=== PATIENT | male | born 1940 | race Caucasian/White ===

== ENCOUNTER 2021-06-10 21:15 | Inpatient (IN) | payer MEDICARE ==
[~2021-06-10] VITALS: Ht 188 cm; Wt 105.7 kg
--- NOTE | 2021-06-10 21:43 | PHYS DOC ---
General Adult HPI: HPI: 81 yo M PMH HTN, HLD, gout, former diabetes and tobacco use, presents to the ED with his son, (patient consents to his/her/their knowledge and involvement in pts' medical care), with complaints of "I have really bad acid reflux," and shortness of breath when lying flat. Reports his PCP Dr. Quevedo' nurse evaluated him today and his oxygen was never above 93%. Received the Pfizer vaccine. Reports shortness of breath started today. Describes as acid reflux as epigastric, constant, nonradiating burning pain that has been present for the past week. Denies any associated scapular pain, jaw pain, diaphoresis, nausea, vomiting, chest pressure/tightness/heaviness or back pain. No history of COVID- 19 infection. Reports no associated leg swelling but does feel as if his abdomen is increased in size. Review of Systems: Review of Systems: Constitutional: Denies fever or chills. [] Eyes: Denies change in visual acuity. [] HENT: Denies nasal congestion or sore throat. [] Respiratory: Denies cough or hemoptysis Cardiovascular: Denies chest pain or edema. [] GI: Denies abdominal pain, nausea, vomiting, bloody stools or diarrhea. [] : Denies dysuria or hematuria Musculoskeletal: Denies back pain or joint pain. [] Integument: Denies rash or diaphoresis Neurologic: Denies headache, focal weakness or sensory changes. [] Endocrine: Denies polyuria or polydipsia. [] Lymphatic: Denies swollen glands. [] Psychiatric: Denies depression or anxiety. [] Heart Score: C/O Chest Pain: No Risk Factors: Risk Factors: DM, Current or recent (<one month) smoker, HTN, HLP, family history of CAD, obesity. Risk Scores: Score 0 - 3: 2.5% MACE over next 6 weeks - Discharge Home Score 4 - 6: 20.3% MACE over next 6 weeks - Admit for Clinical Observation Score 7 - 10: 72.7% MACE over next 6 weeks - Early Invasive Strategies Physical Exam: PE: Constitutional: well nourished, sitting upright/pillow behind back HENT: Normocephalic, atraumatic, Eyes: EOMI, conjunctiva normal, no discharge. Neck: Normal range of motion, supple, Cardiovascular: S1/2 present, no murmurs Lungs & Thorax: Speaking in full sentences-becomes tachypneic/labored with speech, bilateral equal chest rise, no wheezing/rales/crackles Abdomen: soft, obese and slightly distended Skin: Warm, dry, no erythema, no rash. [] Back: No tenderness, no CVA tenderness. [] Extremities: No tenderness, no cyanosis, no lower extremity edema Neurologic: Alert and oriented X 3, normal motor function, normal sensory function, no focal deficits noted. [] Psychologic: Affect normal, judgement normal, mood normal. [] EKG: EK irregular rhythm/afib 83 bpm, no axis deviation, ST elevation III and questionable ST elevation in aVF, no ST depressions, no T wave inversion, no active chest pain, q wave III, no reciprocal changes, no prior EKG for comparison 223 irregular rhythm/afib at 87 bpm, no axis deviation, QRS 122, QTc 470, ST segment elevations III, patient with no active chest pain, no reciprocal changes, no prior EKG for comparison Radiology/Procedures: Radiology/Procedures: IMAGING REPORT Signed PATIENT: CHRISSIE PAREDES ACCOUNT: [id number] : 1940 LOCATION: ER AGE: 81 SEX: M EXAM STATUS: REG ER ORD. PHYSICIAN: KEY YOUNG DO REASON: soa PROCEDURE: PORTABLE CHEST 1V Exam: Chest one view INDICATION: Short of air TECHNIQUE: Frontal view of the chest Comparisons: None FINDINGS: The cardiomediastinal silhouette and pulmonary vessels are within normal limits. Patchy bibasilar airspace disease. No pleural effusion. IMPRESSION: Patchy bilateral airspace disease. Electronically signed by: aJm Reeder MD (06/10/2021 10:37 PM) [facility] DICTATED and SIGNED BY: JAM REEDER MD DATE: 06/10/210934QSI4 0 Course & Med Decision Making: Course & Med Decision Making Pertinent Labs and Imaging studies reviewed. (See chart for details) Pt continued to report shortness of breath and denies any chest pain/pressure/tightness, etc. Some improvement in dyspnea after nitro, lasix and bipap. I d/w Dr. Davis who reviewed pts' ekgs- concerned for a bundle and only 1 ST elevation with no reciprocal changes. Recommended heparin bolus/drip, to make pt npo after midnight, likely cath in am. Pt requests oxygen despite no hypoxia or tachycardia but does have some increased work of breathing, PE is on the differential. I d/w radiology Dr. Lala who recommended against a CTA chest due to pts' renal function and hospital policy, but rather to do a perfusion study. Concerned for nstemi in setting of renal insufficiency and dyspnea. Will admit to the ICU for further medical management. Patient stable time of admission and agrees with this plan. I have spoken with the patient and/or caregivers. I have explained the patient's condition, diagnosis and treatment plan based on the information available to me at this time. I have answered the patient's and/or caregivers questions and answered any concerns. The patient and/or caregivers have as good an understanding of the patient's diagnosis, condition and treatment plan as can be expected at this point. The patient has been stabilized within the capability of the emergency department. The patient will be transported for further care and management or will be moved to an observation or inpatient service. I have communicated with the staff or medical practitioner taking over this patient's care. Critical Care: Authorized and Performed by: Key Young DO Total critical care time: approximately 60 minutes Due to a high probability of clinically significant, life threatening deterior ation, the patient required my highest level of preparedness to intervene emergently and I personally spent this critical care time directly and personally managing the patient. This critical care time included obtaining a history; examining the patient; pulse oximetry; ventilator management if necessary; ordering and review of studies; arranging urgent treatment with development of a management plan; evaluation of patient's response to treatment; frequent reassessment; discussion with patient/family; and, discussions with other providers. This critical care time was performed to assess and manage the high probability of imminent, life-threatening deterioration that could result in multi-organ failure. It was exclusive of separately billable procedures and t reating other patients and teaching time. Please see MDM section and the rest of the note for further information on patient assessment and treatment. Dragon Disclaimer: Dragon Disclaimer: This electronic medical record was generated, in whole or in part, using a voice recognition dictation system. Departure Departure Impression: Primary Impression: NSTEMI (non-ST elevated myocardial infarction) Additional Impressions: Renal insufficiency Dyspnea Disposition: ADMITTED INPATIENT Admitting Physician: Panfilo Jeffrey Condition: CRITICAL Referrals: PANFILO JEFFREY MD (PCP) KEY YOUNG DO Jun 10, 2021 21:43
[2021-06-10 22:04] LABS: BASO # 0.1 x10^3/uL (0.0-0.2); BASO % 1 % (0-3); EOS % 0 % (0-3); HEMATOCRIT 39.7 % (39.0-53.0); HEMOGLOBIN 13.5 g/dL (13.0-17.5); LYMPH # 0.9 x10^3/uL (1.0-4.8); LYMPH % 7 % (24-48); MEAN CORPUSCULAR HEMOGLOBIN 31 pg (25-35); MEAN CORPUSCULAR HGB CONC 34 g/dL (31-37); MEAN CORPUSCULAR VOLUME 90 fL (79-100); MONO # 0.3 x10^3/uL (0.0-1.1); MONO % 3 % (0-9); NEUT % 89 % (31-73); PLATELET COUNT 257 x10^3/uL (140-400); RED CELL DISTRIBUTION WIDTH 15.6 % (11.5-14.5); WHITE BLOOD COUNT 12.3 x10^3/uL (4.0-11.0)
[2021-06-10 22:17] LABS: CALCIUM 8.9 mg/dL (8.5-10.1); CREATININE 1.8 mg/dL (0.7-1.3); GFR 36.3; POTASSIUM 4.6 mmol/L (3.5-5.1)
[2021-06-10 22:23] LABS: ALBUMIN 3.4 g/dL (3.4-5.0); DIRECT BILIRUBIN 0.2 mg/dL (0.0-0.2); TOTAL BILIRUBIN 0.8 mg/dL (0.2-1.0); TOTAL PROTEIN 7.6 g/dL (6.4-8.2)
[2021-06-10] MEDS ORDERED: LIDO:MAALOX 1:1 20 ML SINGLE DOSE. SWSW ONE (22:30)
[2021-06-10] MEDS ORDERED: FAMOTIDINE 20 MG/2 ML VIAL IVP ONE (22:30)
--- NOTE | 2021-06-10 22:39 | RAD ---
Exam: Chest one view INDICATION: Short of air TECHNIQUE: Frontal view of the chest Comparisons: None FINDINGS: The cardiomediastinal silhouette and pulmonary vessels are within normal limits. Patchy bibasilar airspace disease. No pleural effusion. IMPRESSION: Patchy bilateral airspace disease. Electronically signed by: Jam Benson MD (06/10/2021 10:37 PM) [facility]
[2021-06-10] MEDS ORDERED: HEPARIN for IV BOLUS 10,000 UNIT/10 ML VIAL. IV PRN (23:15)
[2021-06-10] MEDS ORDERED: ANTI-COAG MONITOR BY PHARMACY. MC PRN (23:15)
--- NOTE | 2021-06-10 23:26 | EKG ---
[facility] [address] [place] [address] Test Date: 2021-06-10 Test Time: 22:25:15 Pat Name: CHRISSIE PAREDES Department: Room: Gender: M [employer]: : 1940 Requested By: CESAR YOUNG Order Number: [id number] Reading MD: Wayne Carrion MD Measurements Intervals [place] Rate: 83 P: GA: QRS: 66 QRSD: 120 T: -2 QT: 340 QTc: 405 Interpretive Statements PROBABLE HIGH GRADE AV BLOCK INFERIOR INJURY/ISCHEMIA Electronically Signed On 06-15-2021 14:08:53 PANELBEATER by Wayne Carrion MD
[2021-06-10] MEDS ORDERED: FUROSEMIDE 40 MG/4 ML VIAL. IVP ONE (23:30)
[2021-06-10] MEDS ORDERED: NITROGLYCERIN OINT 1 GM PACKET. TP ONE (23:30)
[2021-06-10] MEDS ORDERED: HEPARIN for IV BOLUS 10,000 UNIT/10 ML VIAL. IV ONE (23:30)
[2021-06-10 23:45] LABS: PROTHROMBIN TIME PATIENT 13.8 SEC (11.7-14.0)
[2021-06-10] MEDS: HEPARIN 25,000UTS/250ML PREMIX 250 ML IV PRN (23:46)
[2021-06-11] VITALS (33 sets, daily range): BP systolic 0–146; BP diastolic 0–81
[2021-06-11 04:07] LABS: BASE EXCESS ABG -9 mmol/L (-3-3); HCO3 ABG 18 mmol/L (21-28); PCO2 ABG 42 mmHg (35-46); PO2 ABG 360 mmHg (65-108); SAT O2 ABG 100 % (92-99)
[2021-06-11 04:29] LABS: FIO2 ABG 100
[2021-06-11] MEDS ORDERED: LORazepam 0.5 MG TABLET PO PRN (04:30)
[2021-06-11 05:58] LABS: HEMATOCRIT 44.8 % (39.0-53.0); HEMOGLOBIN 14.6 g/dL (13.0-17.5); RED BLOOD COUNT 4.84 x10^6/uL (4.30-5.70); RED CELL DISTRIBUTION WIDTH 15.7 % (11.5-14.5); WHITE BLOOD COUNT 15.8 x10^3/uL (4.0-11.0)
[2021-06-11] MEDS ORDERED: SODIUM BICARB ADULT 8.4% 50 MEQ/50 ML DISP.SYRIN. IV ONE ×3 (07:15→14:45)
--- NOTE | 2021-06-11 07:15 | NUR ---
Called Dr Jeffrey updated on patient's condition, notified minimal urine output and bladder scan initially 120CC rechecked at 0600 and 6CC found and discussed consulting pulmonology. Orders received to consult Dr Diamond. Dr Diamond on unit, notified fo consult, reason for admission, and CTA not done. Dr Diamond will see patient.
[2021-06-11] MEDS ORDERED: NOREPINEPHRINE VIAL 8 MG in IV DEXTROSE 5% 250 ML IV PRN (07:45)
--- NOTE | 2021-06-11 07:45 | NUR ---
Patient's son here, notified of non visitation on Covid patient's, updated on patient's condition, consults to pulmonology and cardiology, and discussed patient's request for DNR status. Son states patient is a DNR and has a living will which he (son) will bring in when patient is able to have visits. All questions answered. Dr Diamond here to see patient and discussed POC with son; verbal orders received for DNR status, STAT Echo, dc VQ scan and CTA of chest. Dr Jeffrey also here to see patient and spoke to son--no new orders from Dr Jeffrye.
[2021-06-11 08:00] LABS: BASE EXCESS ABG -10 mmol/L (-3-3); HCO3 ABG 17 mmol/L (21-28); PCO2 ABG 40 mmHg (35-46); PO2 ABG 211 mmHg (65-108); SAT O2 ABG 99 % (92-99)
[2021-06-11 08:06] LABS: FIO2 ABG 100% BIPAP 14/6 R=16
--- NOTE | 2021-06-11 08:10 | CONS ---
DATE OF CONSULTATION: 06/11/2021 PULMONARY CONSULTATION ATTENDING PHYSICIAN: Aniket Jeffrey MD. REASON FOR CONSULTATION: Respiratory failure, CHF. HISTORY OF PRESENT ILLNESS: The patient is an 81-year-old obese male with a BMI of 29.9. The patient has history of tobacco use. History of diabetes. He was brought into the hospital with complaint of shortness of breath. The patient was having some nonspecific chest pain and he thought it was acid reflux, for which he was taking antireflux treatment. The patient was having orthopnea as well. He denies any cough. Denies any fever or chills. The patient is vaccinated with COVID. His rapid COVID test was negative as well. His chest x-ray was reviewed by me and it shows evidence of congestive heart failure. There was also some right apical prominent vascular markings. Previous x-ray was from 2018, which was clear. The patient was also noted to have RENEE with a BUN of 19 and creatinine 1.8. Bicarb on the blood gases was 18. A pH was 7.26, pCO2 of 42 and a pO2 of 360 on 100% FIO2. He is able to answer questions. His son is at the bedside who gave most of the history. Consultation requested for further evaluation and management. PAST MEDICAL HISTORY: Significant for history of tobaccoism, possible underlying COPD, although he did not smoke heavily. Underlying obesity. History of hypertension, hyperlipidemia, gout and history of diabetes. PAST SURGICAL HISTORY: No recent surgery. ALLERGIES: None. MEDICATIONS: Reviewed as listed in the MRAD including heparin per protocol. SYSTEMS REVIEW: A 12-point system obtained. Pertinent positives discussed in my present illness, otherwise noncontributory. All systems that were negative were reviewed as well. FAMILY HISTORY: Noncontributory to lungs. PHYSICAL EXAMINATION: VITAL SIGNS: Reviewed. Blood pressure has been in the 80s systolic. Pulse ox is 96% on current BiPAP. He is having some belly breathing. NECK: Supple. LUNGS: With diminished breath sounds. No wheezing. CARDIOVASCULAR: With a regular rate. ABDOMEN: Soft, obese. EXTREMITIES: With bilateral pitting edema. LABORATORY DATA: Rapid COVID test is negative. BUN is 19, creatinine 1.8. Troponin is 4851. INR 1.1. D-dimer 0.9. White cell count was 12.3 on admission, hemoglobin 13.5 and platelets 257. IMPRESSION: 1. Acute respiratory failure secondary to metabolic acidosis and congestive heart failure, unstable angina. 2. Congestive heart failure, likely acute on chronic diastolic versus systolic. We will obtain an echocardiogram for further evaluation. 3. Hypotension could be cardiogenic shock. He did receive one dose of Lasix in the ER. Could be intravascularly depleted. We will try low dose of 500 mL fluid challenge. 4. Leukocytosis, likely reactive. No fever. We will monitor white cell count. 5. Acute kidney injury. 6. Abnormal chest x-ray with bilateral interstitial infiltrates suggestive of congestive heart failure. 7. The patient is status post COVID vaccine. 8. NSTMI RECOMMENDATIONS: 1. Continue present BiPAP until metabolic acidosis is improved. 2. Give 1 amp of bicarb. 3. Follow renal function closely. 4. AJDE echocardiogram. 5. Volume challenge to see an improvement in blood pressure and if does not improve, then start with Levophed. 6. Cardiology recommendations. 7. At this point, no need for CTA chest due to his creatinine being high. V/Q scan will not be helpful in the setting of bilateral lung infiltrates. Clinical suspicion for thromboembolic disease is low. D-Dimer is mildly elevated, which is a nonspecific test and could be seen in CHF as well. 8. Continue heparin per protocol for increased troponin. He likely has non-ST myocardial infarction. 9. Discussed with Dr. Jeffrey. Discussed with the patient's son. Chart reviewed. Imaging studies reviewed. Total critical care time 40 minutes including decision making. CHELSEY OLIVA: Buck TID: [id number] [facility] HOSPITALAlfredito
--- NOTE | 2021-06-11 09:06 | EKG ---
[facility] [address] [place] [address] Test Date: 2021-06-11 Test Time: 09:03:44 Pat Name: CHRISSIE PAREDES Department: Room: 111 1 Gender: M Certified Surgical Assistant: [place] : 1940 Requested By: STEPHANIE BANKS Order Number: [id number] Reading MD: Wayne Carrion MD Measurements Intervals [place] Rate: 66 P: 0 SC: 294 QRS: 81 QRSD: 124 T: 47 QT: 442 QTc: 465 Interpretive Statements SINUS RHYTHM INFERIOR ISCHEMIA Electronically Signed On 06-15-2021 14:07:29 TEACHERS AIDE by Wayne Carrion MD
[2021-06-11 09:07] LABS: CHOLESTEROL/HDL RATIO 3.2
[2021-06-11] MEDS ORDERED: IV NORMAL SALINE 1000ML BAG 1,000 ML IV ONE (09:15)
[2021-06-11] MEDS ORDERED: FUROSEMIDE 40 MG/4 ML VIAL. IVP ONE (09:15)
--- NOTE | 2021-06-11 09:24 | PDOC2 ---
STEPHANIE BANKS HEALTH SPA MANAGER 06/11/21 0924: CARDIAC CONSULT DATE OF CONSULT Date of Consult DATE: 06/11/21 TIME: 09:11 REASON FOR CONSULT Reason for Consult: NSTEMI REFERRING PHYSICIAN Referring Physician: [facility] SOURCE Source: Chart review, Patient HISTORY OF PRESENT ILLNESS HISTORY OF PRESENT ILLNESS This is an 81 yo male admitted for complains of nausea and heartburn and SOA which have been happening in the last 10 days. No prior hx of CAD. No chest pain per se but complains of heartburn. No hx of bleed, CVA, VTE. He is significant for HTN. HLP, DM2 and tobaccoism. He is vaccinated for covid-19. No fever or chills. PAST MEDICAL HISTORY Cardiovascular: HTN, Hyperlipidemia Pulmonary: No pertinent hx CENTRAL NERVOUS SYSTEM: Other (No pertinent history) Musculoskeletal: Osteoarthritis Rheumatologic: Gout Endocrine: Diabetes PAST SURGICAL HISTORY Past Surgical History: No pertinent history FAMILY HISTORY Family History: Family History Unknown SOCIAL HISTORY Smoke: 1 pack per day ALCOHOL: none Lives: with Family CURRENT MEDICATIONS CURRENT MEDICATIONS Current Medications Medications (Trade) Dose Ordered Sig/Leandra Route PRN Reason Start Time Stop Time Status Last Admin Dose Admin Multi-Ingredient Mouthwash/Gargle (Gi Cocktail) 20 ml 1X ONCE SWSW 06/10/21 22:30 06/10/21 22:31 DC 06/10/21 22:14 Famotidine (Pepcid Vial) 20 mg 1X ONCE IVP 06/10/21 22:30 06/10/21 22:31 DC 06/10/21 22:14 Nitroglycerin (Nitro-Bid Oint) 1 inch 1X ONCE TP 06/10/21 23:30 06/10/21 23:31 DC 06/10/21 23:52 Furosemide (Lasix) 80 mg 1X ONCE IVP 06/10/21 23:30 06/10/21 23:31 DC 06/10/21 23:54 Heparin Sodium (Porcine) (Heparin Sodium) 4,000 unit 1X ONCE IV 06/10/21 23:30 06/10/21 23:31 DC 06/10/21 23:42 Heparin Sodium/ Dextrose 250 ml @ 10 mls/hr CONT PRN IV PER PROTOCOL 06/10/21 23:15 06/10/21 23:46 Info (Anti-Coagulation Monitoring By Pharmacy) 1 each PRN DAILY PRN MC PER PROTOCOL 06/10/21 23:15 06/11/21 01:33 Lorazepam (Ativan) 0.5 mg PRN Q4HRS PRN PO ANXIETY / AGITATION 06/11/21 04:30 06/11/21 05:08 Sodium Bicarbonate (Sodium Bicarb Adult 8.4% Syr) 50 meq 1X ONCE IV 06/11/21 07:15 06/11/21 07:19 DC 06/11/21 07:25 Norepinephrine Bitartrate 8 mg/ Dextrose 258 ml @ 20.453 mls/ hr CONT PRN IV PER PROTOCOL 06/11/21 07:45 06/11/21 07:58 Sodium Bicarbonate (Sodium Bicarb Adult 8.4% Syr) 50 meq 1X ONCE IV 06/11/21 08:30 06/11/21 08:31 DC 06/11/21 08:33 ALLERGIES ALLERGIES: Coded Allergies: No Known Drug Allergies (Unverified , 06/10/21) ROS Review of System limited on bipap PHYSICAL EXAM General: Oriented X3, Cooperative, moderate distress HEENT: Atraumatic, Mucous membr. moist/pink Lungs: Other (diminished ) Heart: Other (AFIB) Abdomen: Soft Extremities: No cyanosis, No edema Skin: No breakdown Neuro: Normal speech, Sensation intact Psych/Mental Status: Other (drowsy) MUSCULOSKELETAL: Osteoarthritic changes both hands VITALS/I&O VITALS/I&O: Vital Signs Date Time Temp Pulse Resp B/P (MAP) Pulse Ox O2 Delivery O2 Flow Rate FiO2 06/11/21 08:00 Bi-pap 06/11/21 08:00 60 30 91/53 96 06/10/21 22:08 97.0 06/10/21 21:48 98.5 98.5 l I & O 06/10/21 06/10/21 06/11/21 15:00 23:00 07:00 Output Total 60 ml Balance -60 ml LABS Lab: Laboratory Tests Test 06/10/21 21:55 06/11/21 00:22 06/11/21 03:57 06/11/21 05:30 White Blood Count 12.3 x10^3/uL (4.0-11.0) H 15.8 x10^3/uL (4.0-11.0) H Red Blood Count 4.40 x10^6/uL (4.30-5.70) 4.84 x10^6/uL (4.30-5.70) Hemoglobin 13.5 g/dL (13.0-17.5) 14.6 g/dL (13.0-17.5) Hematocrit 39.7 % (39.0-53.0) 44.8 % (39.0-53.0) Mean Corpuscular Volume 90 fL (79-100) 93 fL (79-100) Mean Corpuscular Hemoglobin 31 pg (25-35) 30 pg (25-35) Mean Corpuscular Hemoglobin Concent 34 g/dL (31-37) 33 g/dL (31-37) Red Cell Distribution Width 15.6 % (11.5-14.5) H 15.7 % (11.5-14.5) H Platelet Count 257 x10^3/uL (140-400) 263 x10^3/uL (140-400) Neutrophils (%) (Auto) 89 % (31-73) H Lymphocytes (%) (Auto) 7 % (24-48) L Monocytes (%) (Auto) 3 % (0-9) Eosinophils (%) (Auto) 0 % (0-3) Basophils (%) (Auto) 1 % (0-3) Neutrophils # (Auto) 11.0 x10^3/uL (1.8-7.7) H Lymphocytes # (Auto) 0.9 x10^3/uL (1.0-4.8) L Monocytes # (Auto) 0.3 x10^3/uL (0.0-1.1) Eosinophils # (Auto) 0.0 x10^3/uL (0.0-0.7) Basophils # (Auto) 0.1 x10^3/uL (0.0-0.2) Prothrombin Time 13.8 SEC (11.7-14.0) Prothrombin Time INR 1.1 (0.8-1.1) Activated Partial Thromboplast Time 37 SEC (24-38) D-Dimer (Elizabeth) 0.96 ug/mlFEU (0.00-0.50) H Sodium Level 132 mmol/L (136-145) L Potassium Level 4.6 mmol/L (3.5-5.1) Chloride Level 97 mmol/L (98-107) L Carbon Dioxide Level 25 mmol/L (21-32) Anion Gap 10 (6-14) Blood Urea Nitrogen 19 mg/dL (8-26) Creatinine 1.8 mg/dL (0.7-1.3) H Estimated GFR (Cockcroft-Gault) 36.3 Glucose Level 231 mg/dL (70-99) H Calcium Level 8.9 mg/dL (8.5-10.1) Total Bilirubin 0.8 mg/dL (0.2-1.0) Direct Bilirubin 0.2 mg/dL (0.0-0.2) Aspartate Amino Transferase (AST) 44 U/L (15-37) H Alanine Aminotransferase (ALT) 25 U/L (16-63) Alkaline Phosphatase 94 U/L (46-116) Creatine Kinase 263 U/L (39-308) Troponin I High Sensitivity 4851 ng/L (4-75) H PB-Ucn-S-Type Natriuretic Peptide 7146 pg/mL (0-449) H Total Protein 7.6 g/dL (6.4-8.2) Albumin 3.4 g/dL (3.4-5.0) SARS-CoV-2 Antigen (Rapid) Negative (NEGATIVE) O2 Saturation 100 % (92-99) H Arterial Blood pH 7.26 (7.35-7.45) L Arterial Blood pCO2 at Patient Temp 42 mmHg (35-46) Arterial Blood pO2 at Patient Temp 360 mmHg (65-108) H Arterial Blood HCO3 18 mmol/L (21-28) L Arterial Blood Base Excess -9 mmol/L (-3-3) L FiO2 100 Heparin Anti-Xa Act, Unfractionated 0.15 IU/mL (0.30-0.70) L Triglycerides Level 73 mg/dL (0-150) Cholesterol Level 167 mg/dL (0-200) LDL Cholesterol, Calculated 100 mg/dL (0-100) VLDL Cholesterol, Calculated 15 mg/dL (0-40) Non-HDL Cholesterol Calculated 115 mg/dL (0-129) HDL Cholesterol 52 mg/dL (40-60) Cholesterol/HDL Ratio 3.2 Test 06/11/21 07:56 O2 Saturation 99 % (92-99) Arterial Blood pH 7.24 (7.35-7.45) L Arterial Blood pCO2 at Patient Temp 40 mmHg (35-46) Arterial Blood pO2 at Patient Temp 211 mmHg (65-108) H Arterial Blood HCO3 17 mmol/L (21-28) L Arterial Blood Base Excess -10 mmol/L (-3-3) L FiO2 100% bipap 14/6 r=16 Laboratory Tests 06/10/21 21:55 06/11/21 05:30 Laboratory Tests 06/10/21 21:55 ASSESSMENT/PLAN ASSESSMENT/PLAN 1. Acute respiratory failure with CHF and possible COPD 2. ACS 3. HTN: needing pressor 4. HLP: on home zocor 5. DM2 6. Tobaccoism 7. RENEE 8. AFIB: new, rate controlled. at times with dolores episode Recommendations 1. Continue pressor support with levophed. Lasix therapy. Maintenance IVF 2. ASA. Continue heparin 3. Continue bipap 4. LHC with possible PCI today, risks and beneftis discussed and agreeable to proceed 5. FLP, TTE 6. No AV daysi blocking agents for now nonitor rhythm. Avoid nephrotoxins. DC metformin 7. Consult nephrology YULIA ALLEN MD 06/11/21 1546: CARDIAC CONSULT ASSESSMENT/PLAN ASSESSMENT/PLAN Patient seen and examined. Agree with WEBSITE PROGRAMMER's assessment and plan. Agree with emergent cardiac catheterization and possible angioplasty Continue pressors for cardiogenic shock Continue heparin infusion per protocol Atrial fibrillation, newly diagnosed, rate relatively well controlled Continue diuresis for congestive heart failure probably acute diastolic Thank you for your consultation Total critical care time spent evaluating patient 40 minutes STEPHANIE BANKS APRN Jun 11, 2021 09:24 YULIA ALLEN MD Jun 11, 2021 15:46
[2021-06-11 09:39] LABS: CALCIUM 8.7 mg/dL (8.5-10.1); CREATININE 2.4 mg/dL (0.7-1.3); POTASSIUM 5.1 mmol/L (3.5-5.1)
[2021-06-11 09:45] LABS: ALBUMIN 3.2 g/dL (3.4-5.0); ALBUMIN/GLOBULIN RATIO 0.9 (1.0-1.7); TOTAL BILIRUBIN 0.7 mg/dL (0.2-1.0); TOTAL PROTEIN 6.9 g/dL (6.4-8.2)
[2021-06-11] MEDS ORDERED: SIMV40TA18 PO (09:45)
[2021-06-11] MEDS ORDERED: METF500T16 PO (09:45)
[2021-06-11] MEDS ORDERED: ALLO300T PO (09:45)
[2021-06-11] MEDS ORDERED: CARV25TA PO (09:45)
[2021-06-11] MEDS ORDERED: IODIXANOL 320 MG/ML 100 ML VIAL. ONE ×5 (10:39→13:02)
[2021-06-11] MEDS ORDERED: LIDOCAINE 1% PF 2 ML VIAL. ONE (10:39)
[2021-06-11] MEDS ORDERED: LIDOCAINE 1% Multi-Dose 20 ML VIAL. ONE (11:01)
[2021-06-11] MEDS ORDERED: fentaNYL PF VIAL 100 MCG/2 ML VIAL ONE (11:15)
[2021-06-11] MEDS ORDERED: MIDAZOLAM HCL/PF 2 MG/2 ML VIAL. ONE (11:15)
--- NOTE | 2021-06-11 11:16 | PDOC2 ---
CONSULT Date of Consult Date of Consult DATE: 06/11/21 TIME: 11:06 Reason for Consult Reason for Consult: RENEE Referring Physician Referring Physician: BEAU Identification/Chief Complaint Chief Complaint SOB AND CHEST PAIN Source Source: Chart review History of Present Illness Reason for Visit: THIS IS AN 81 YR OLD WITH SOB AND CHEST PAIN FOR ABOUT 10 DAYS. THOUGHT IT WAS GERD. CAME IN DUE TO SOB. COVID TEST WAS NEG. CURRENTLY NEEDING SUPPLEMENTAL OXYGEN TO MAINTAIN SATS. HE HAS ACIDEMIA WITH MET AND RESP COMPONENTS. PULM EVAL ONGOING. PT ALSO BEING SEEN BY CARDIOLOGY HE HAS HAD AN NH. PLAN FOR HEART CATH RIGHT AWAY. HE CANNOT GIVE ANY HX HE IS ON BIPAP. HEMODYNAMICALLY STABLE. HE HAS RENEE. CR OF 1.9 INITIALLY AND NOW 2.4. HE HAS ALSO BECOME OLIGURIC OVER NIGHT. SUSPECT UNDERLYING CKD BUT UNKNOWN. Past Medical History Cardiovascular: HTN, Hyperlipidemia Pulmonary: No pertinent hx CENTRAL NERVOUS SYSTEM: Other (No pertinent history) Musculoskeletal: Osteoarthritis Rheumatologic: Gout Endocrine: Diabetes Past Surgical History Past Surgical History: No pertinent history Family History Family History: Family History Unknown Social History 1 pack per day ALCOHOL: none Lives: with Family Current Problem List Problem List Problems Medical Problems: (1) Dyspnea Status: Acute (2) NSTEMI (non-ST elevated myocardial infarction) Status: Acute (3) Renal insufficiency Status: Acute Current Medications Current Medications Current Medications Multi-Ingredient Mouthwash/Gargle (Gi Cocktail) 20 ml 1X ONCE SWSW Last administered on 06/10/21at 22:14; Start 06/10/21 at 22:30; Stop 06/10/21 at 22:31; Status DC Famotidine (Pepcid Vial) 20 mg 1X ONCE IVP Last administered on 06/10/21at 22:14; Start 06/10/21 at 22:30; Stop 06/10/21 at 22:31; Status DC Nitroglycerin (Nitro-Bid Oint) 1 inch 1X ONCE TP Last administered on 06/10/21at 23:52; Start 06/10/21 at 23:30; Stop 06/10/21 at 23:31; Status DC Furosemide (Lasix) 80 mg 1X ONCE IVP Last administered on 06/10/21at 23:54; Start 06/10/21 at 23:30; Stop 06/10/21 at 23:31; Status DC Heparin Sodium (Porcine) (Heparin Sodium) 4,000 unit 1X ONCE IV Last administered on 06/10/21at 23:42; Start 06/10/21 at 23:30; Stop 06/10/21 at 23:31; Status DC Heparin Sodium/ Dextrose 250 ml @ 10 mls/hr CONT PRN IV PER PROTOCOL Last administered on 06/10/21at 23:46; Start 06/10/21 at 23:15 Heparin Sodium (Porcine) (Heparin Sodium) 2,700 unit PRN Q6HRS PRN IV FOR UFH LEVEL LESS THAN 0.2; Start 06/10/21 at 23:15 Info (Anti-Coagulation Monitoring By Pharmacy) 1 each PRN DAILY PRN MC PER PROTOCOL Last administered on 06/11/21at 01:33; Start 06/10/21 at 23:15 Lorazepam (Ativan) 0.5 mg PRN Q4HRS PRN PO ANXIETY / AGITATION Last administered on 06/11/21at 05:08; Start 06/11/21 at 04:30 Sodium Bicarbonate (Sodium Bicarb Adult 8.4% Syr) 50 meq 1X ONCE IV Last administered on 06/11/21at 07:25; Start 06/11/21 at 07:15; Stop 06/11/21 at 07:19; Status DC Norepinephrine Bitartrate 8 mg/ Dextrose 258 ml @ 20.453 mls/ hr CONT PRN IV PER PROTOCOL Last administered on 06/11/21at 07:58; Start 06/11/21 at 07:45 Sodium Bicarbonate (Sodium Bicarb Adult 8.4% Syr) 50 meq 1X ONCE IV Last administered on 06/11/21at 08:33; Start 06/11/21 at 08:30; Stop 06/11/21 at 08 :31; Status DC Furosemide (Lasix) 40 mg 1X ONCE IVP Last administered on 06/11/21at 09:23; Start 06/11/21 at 09:15; Stop 06/11/21 at 09:16; Status DC Sodium Chloride 1,000 ml @ 75 mls/hr 1X ONCE IV ; Start 06/11/21 at 09:15; Stop 06/11/21 at 22:34 Iodixanol (Visipaque 320) 100 ml STK-MED ONCE .ROUTE ; Start 06/11/21 at 10:39; Stop 06/11/21 at 10:40; Status DC Lidocaine HCl (Xylocaine-Mpf 1% 2ml Vial) 2 ml STK-MED ONCE .ROUTE ; Start 06/11/21 at 10:39; Stop 06/11/21 at 10:40; Status DC Heparin Sodium/ Sodium Chloride 500 ml @ As Directed STK-MED ONCE .ROUTE ; Start 06/11/21 at 10:39; Stop 06/11/21 at 10:40; Status DC Lidocaine HCl (Lidocaine 1% 20ml Vial) 20 ml STK-MED ONCE .ROUTE ; Start 06/11/21 at 11:01; Stop 06/11/21 at 11:01; Status DC Active Scripts Active Reported Coreg (Carvedilol) 25 Mg Tablet 12.5 Mg PO BIDWMEALS Metformin Hcl 500 Mg Tablet 500 Mg PO BIDWMEALS Allopurinol 300 Mg Tablet 1 Tab PO DAILY Simvastatin 40 Mg Tablet 40 Mg PO DAILY Allergies Allergies: Coded Allergies: No Known Drug Allergies (Unverified , 06/10/21) ROS Review of System UNABLE TO OBTAIN Physical Exam General: Alert, moderate distress HEENT: Atraumatic, PERRLA Lungs: Other (DECREASED AT BASES, [place]) Heart: Regular rate Abdomen: Normal bowel sounds Extremities: No cyanosis Skin: No breakdown Neuro: Normal speech Psych/Mental Status: Mental status NL, Mood NL MUSCULOSKELETAL: No joint tenderness, No deformity Vitals VITALS Vital Signs Date Time Temp Pulse Resp B/P (MAP) Pulse Ox O2 Delivery O2 Flow Rate FiO2 06/11/21 11:00 67 32 95 BiPAP/CPAP 06/11/21 09:00 94.8 94.8 06/10/21 22:08 97.0 Labs Labs Laboratory Tests Test 06/10/21 21:55 06/11/21 00:22 06/11/21 03:57 06/11/21 05:30 White Blood Count 12.3 x10^3/uL (4.0-11.0) 15.8 x10^3/uL (4.0-11.0) Red Blood Count 4.40 x10^6/uL (4.30-5.70) 4.84 x10^6/uL (4.30-5.70) Hemoglobin 13.5 g/dL (13.0-17.5) 14.6 g/dL (13.0-17.5) Hematocrit 39.7 % (39.0-53.0) 44.8 % (39.0-53.0) Mean Corpuscular Volume 90 fL (79-100) 93 fL (79-100) Mean Corpuscular Hemoglobin 31 pg (25-35) 30 pg (25-35) Mean Corpuscular Hemoglobin Concent 34 g/dL (31-37) 33 g/dL (31-37) Red Cell Distribution Width 15.6 % (11.5-14.5) 15.7 % (11.5-14.5) Platelet Count 257 x10^3/uL (140-400) 263 x10^3/uL (140-400) Neutrophils (%) (Auto) 89 % (31-73) Lymphocytes (%) (Auto) 7 % (24-48) Monocytes (%) (Auto) 3 % (0-9) Eosinophils (%) (Auto) 0 % (0-3) Basophils (%) (Auto) 1 % (0-3) Neutrophils # (Auto) 11.0 x10^3/uL (1.8-7.7) Lymphocytes # (Auto) 0.9 x10^3/uL (1.0-4.8) Monocytes # (Auto) 0.3 x10^3/uL (0.0-1.1) Eosinophils # (Auto) 0.0 x10^3/uL (0.0-0.7) Basophils # (Auto) 0.1 x10^3/uL (0.0-0.2) Prothrombin Time 13.8 SEC (11.7-14.0) Prothromb Time International Ratio 1.1 (0.8-1.1) Activated Partial Thromboplast Time 37 SEC (24-38) D-Dimer (Elizabeth) 0.96 ug/mlFEU (0.00-0.50) Sodium Level 132 mmol/L (136-145) 132 mmol/L (136-145) Potassium Level 4.6 mmol/L (3.5-5.1) 5.1 mmol/L (3.5-5.1) Chloride Level 97 mmol/L (98-107) 97 mmol/L (98-107) Carbon Dioxide Level 25 mmol/L (21-32) 23 mmol/L (21-32) Anion Gap 10 (6-14) 12 (6-14) Blood Urea Nitrogen 19 mg/dL (8-26) 23 mg/dL (8-26) Creatinine 1.8 mg/dL (0.7-1.3) 2.4 mg/dL (0.7-1.3) Estimated GFR (Cockcroft-Gault) 36.3 26.0 Glucose Level 231 mg/dL (70-99) 260 mg/dL (70-99) Calcium Level 8.9 mg/dL (8.5-10.1) 8.7 mg/dL (8.5-10.1) Total Bilirubin 0.8 mg/dL (0.2-1.0) 0.7 mg/dL (0.2-1.0) Direct Bilirubin 0.2 mg/dL (0.0-0.2) Aspartate Amino Transf (AST/SGOT) 44 U/L (15-37) 159 U/L (15-37) Alanine Aminotransferase (ALT/SGPT) 25 U/L (16-63) 113 U/L (16-63) Alkaline Phosphatase 94 U/L (46-116) 97 U/L (46-116) Creatine Kinase 263 U/L (39-308) Troponin I High Sensitivity 4851 ng/L (4-75) OC-Jif-I-Type Natriuretic Peptide 7146 pg/mL (0-449) Total Protein 7.6 g/dL (6.4-8.2) 6.9 g/dL (6.4-8.2) Albumin 3.4 g/dL (3.4-5.0) 3.2 g/dL (3.4-5.0) SARS-CoV-2 Antigen (Rapid) Negative (NEGATIVE) O2 Saturation 100 % (92-99) Arterial Blood pH 7.26 (7.35-7.45) Arterial Blood pCO2 at Patient Temp 42 mmHg (35-46) Arterial Blood pO2 at Patient Temp 360 mmHg (65-108) Arterial Blood HCO3 18 mmol/L (21-28) Arterial Blood Base Excess -9 mmol/L (-3-3) FiO2 100 Heparin Anti-Xa Act, Unfractionated 0.15 IU/mL (0.30-0.70) BUN/Creatinine Ratio 10 (6-20) Albumin/Globulin Ratio 0.9 (1.0-1.7) Triglycerides Level 73 mg/dL (0-150) Cholesterol Level 167 mg/dL (0-200) LDL Cholesterol, Calculated 100 mg/dL (0-100) VLDL Cholesterol, Calculated 15 mg/dL (0-40) Non-HDL Cholesterol Calculated 115 mg/dL (0-129) HDL Cholesterol 52 mg/dL (40-60) Cholesterol/HDL Ratio 3.2 Test 06/11/21 07:56 O2 Saturation 99 % (92-99) Arterial Blood pH 7.24 (7.35-7.45) Arterial Blood pCO2 at Patient Temp 40 mmHg (35-46) Arterial Blood pO2 at Patient Temp 211 mmHg (65-108) Arterial Blood HCO3 17 mmol/L (21-28) Arterial Blood Base Excess -10 mmol/L (-3-3) FiO2 100% bipap 14 r=16 Laboratory Tests Test 06/10/21 21:55 06/11/21 00:22 06/11/21 03:57 06/11/21 05:30 White Blood Count 12.3 x10^3/uL (4.0-11.0) 15.8 x10^3/uL (4.0-11.0) Red Blood Count 4.40 x10^6/uL (4.30-5.70) 4.84 x10^6/uL (4.30-5.70) Hemoglobin 13.5 g/dL (13.0-17.5) 14.6 g/dL (13.0-17.5) Hematocrit 39.7 % (39.0-53.0) 44.8 % (39.0-53.0) Mean Corpuscular Volume 90 fL (79-100) 93 fL (79-100) Mean Corpuscular Hemoglobin 31 pg (25-35) 30 pg (25-35) Mean Corpuscular Hemoglobin Concent 34 g/dL (31-37) 33 g/dL (31-37) Red Cell Distribution Width 15.6 % (11.5-14.5) 15.7 % (11.5-14.5) Platelet Count 257 x10^3/uL (140-400) 263 x10^3/uL (140-400) Neutrophils (%) (Auto) 89 % (31-73) Lymphocytes (%) (Auto) 7 % (24-48) Monocytes (%) (Auto) 3 % (0-9) Eosinophils (%) (Auto) 0 % (0-3) Basophils (%) (Auto) 1 % (0-3) Neutrophils # (Auto) 11.0 x10^3/uL (1.8-7.7) Lymphocytes # (Auto) 0.9 x10^3/uL (1.0-4.8) Monocytes # (Auto) 0.3 x10^3/uL (0.0-1.1) Eosinophils # (Auto) 0.0 x10^3/uL (0.0-0.7) Basophils # (Auto) 0.1 x10^3/uL (0.0-0.2) Prothrombin Time 13.8 SEC (11.7-14.0) Prothromb Time International Ratio 1.1 (0.8-1.1) Activated Partial Thromboplast Time 37 SEC (24-38) D-Dimer (Elizabeth) 0.96 ug/mlFEU (0.00-0.50) Sodium Level 132 mmol/L (136-145) 132 mmol/L (136-145) Potassium Level 4.6 mmol/L (3.5-5.1) 5.1 mmol/L (3.5-5.1) Chloride Level 97 mmol/L (98-107) 97 mmol/L (98-107) Carbon Dioxide Level 25 mmol/L (21-32) 23 mmol/L (21-32) Anion Gap 10 (6-14) 12 (6-14) Blood Urea Nitrogen 19 mg/dL (8-26) 23 mg/dL (8-26) Creatinine 1.8 mg/dL (0.7-1.3) 2.4 mg/dL (0.7-1.3) Estimated GFR (Cockcroft-Gault) 36.3 26.0 Glucose Level 231 mg/dL (70-99) 260 mg/dL (70-99) Calcium Level 8.9 mg/dL (8.5-10.1) 8.7 mg/dL (8.5-10.1) Total Bilirubin 0.8 mg/dL (0.2-1.0) 0.7 mg/dL (0.2-1.0) Direct Bilirubin 0.2 mg/dL (0.0-0.2) Aspartate Amino Transf (AST/SGOT) 44 U/L (15-37) 159 U/L (15-37) Alanine Aminotransferase (ALT/SGPT) 25 U/L (16-63) 113 U/L (16-63) Alkaline Phosphatase 94 U/L (46-116) 97 U/L (46-116) Creatine Kinase 263 U/L (39-308) Troponin I High Sensitivity 4851 ng/L (4-75) IZ-Ijh-I-Type Natriuretic Peptide 7146 pg/mL (0-449) Total Protein 7.6 g/dL (6.4-8.2) 6.9 g/dL (6.4-8.2) Albumin 3.4 g/dL (3.4-5.0) 3.2 g/dL (3.4-5.0) SARS-CoV-2 Antigen (Rapid) Negative (NEGATIVE) O2 Saturation 100 % (92-99) Arterial Blood pH 7.26 (7.35-7.45) Arterial Blood pCO2 at Patient Temp 42 mmHg (35-46) Arterial Blood pO2 at Patient Temp 360 mmHg (65-108) Arterial Blood HCO3 18 mmol/L (21-28) Arterial Blood Base Excess -9 mmol/L (-3-3) FiO2 100 Heparin Anti-Xa Act, Unfractionated 0.15 IU/mL (0.30-0.70) BUN/Creatinine Ratio 10 (6-20) Albumin/Globulin Ratio 0.9 (1.0-1.7) Triglycerides Level 73 mg/dL (0-150) Cholesterol Level 167 mg/dL (0-200) LDL Cholesterol, Calculated 100 mg/dL (0-100) VLDL Cholesterol, Calculated 15 mg/dL (0-40) Non-HDL Cholesterol Calculated 115 mg/dL (0-129) HDL Cholesterol 52 mg/dL (40-60) Cholesterol/HDL Ratio 3.2 Test 06/11/21 07:56 O2 Saturation 99 % (92-99) Arterial Blood pH 7.24 (7.35-7.45) Arterial Blood pCO2 at Patient Temp 40 mmHg (35-46) Arterial Blood pO2 at Patient Temp 211 mmHg (65-108) Arterial Blood HCO3 17 mmol/L (21-28) Arterial Blood Base Excess -10 mmol/L (-3-3) FiO2 100% bipap 14/6 r=16 Images Images Exam: Chest one view INDICATION: Short of air TECHNIQUE: Frontal view of the chest Comparisons: None FINDINGS: The cardiomediastinal silhouette and pulmonary vessels are within normal limits. Patchy bibasilar airspace disease. No pleural effusion. IMPRESSION: Patchy bilateral airspace disease. Electronically signed by: Jam Benson MD (06/10/2021 10:37 PM) [facility] Assessment/Plan Assessment/Plan IMP RENEE-ATN POSSIBLE CKD-UNKNOWN STAGE ACUTE RESP FAILURE POSSIBLE COPD ACUTE CHF ACS-ELEVATED TROPONIN LEVELS MET AND RESP ACIDOSIS WITH ACIDEMIA HX OF TOBACCOISM HYPOTENSION PLAN LHC TODAY HCO3 GIVEN PRESSORS NEEDED BIPAP WILL NEED HD WILL ASK IR TO PLACE TEMP HD LINE HD AFTER LHC/INTERVENTION WILL UF ABOUT 1.5-2.0 LITERS IF TOLERATED PT IS CRITICALLY ILL CCT 1 XI BACON MD Jun 11, 2021 11:16
--- NOTE | 2021-06-11 11:31 | NUR ---
SS following for discharge planning. SS reviewed pt chart and discussed with pt RN. Pt is from home and is currently on BIPAP at 50%. COVID19 negative. Pt on Heparin and Levophed. Cardiology, Pulmonology, and Nephrology following. dentures lab technician today. Pt to start dialysis later today. SS will continue to follow for discharge planning.
[2021-06-11] MEDS ORDERED: BIVALIRUDIN 250 MG VIAL. IV ONE ×4 (11:58→13:00)
[2021-06-11] MEDS ORDERED: LIDOCAINE 1% PF 5 ML VIAL. INJ ONE (12:00)
[2021-06-11] MEDS ORDERED: LIDOCAINE 1% PF 2 ML VIAL. INJ ONE (12:00)
[2021-06-11] MEDS ORDERED: MIDAZOLAM HCL/PF 2 MG/2 ML VIAL. IV ONE (12:00)
[2021-06-11] MEDS ORDERED: fentaNYL PF VIAL 100 MCG/2 ML VIAL IV ONE (12:00)
[2021-06-11] MEDS ORDERED: IODIXANOL 320 MG/ML 100 ML VIAL. IART ONE (12:00)
--- NOTE | 2021-06-11 12:14 | CARD ---
MR#: [id number] Date of Study: 06/11/2021 Ordering Physician: HUMBERTO JONES, Referring Physician: HUMBERTO JONES, Tech: Sulma Foy, [facility] APPROVED REPORT EXAM: Two-dimensional and M-mode echocardiogram with Doppler and color Doppler. Other Information Quality : AverageHR: 64bpm Technically limited study due to combative patient INDICATION Dyspnea Congestive Heart Failure RISK FACTORS Hypertension Hyperlipidemia 2D DIMENSIONS Left Atrium(2D)4.7 (1.6-4.0cm)IVSd1.4 (0.7-1.1cm) Aortic Root(2D)3.6 (2.0-3.7cm)LVDd6.0 (3.9-5.9cm) LVOT Diameter2.0 (1.8-2.4cm)PWd1.4 (0.7-1.1cm) LVDs4.5 (2.5-4.0cm)FS (%) 24.8 % SV88.0 ml Aortic Valve AoV Peak Acm.128.7cm/sAoV VTI21.3cm AO Peak GR.6.6mmHgLVOT VTI 14.98cm AO Mean GR.4mmHg Mitral Valve MV E Duqnzcxp047.4cm/sMV DECEL [id number] MV A Lgmjiyst90.8cm/sE/A Ratio1.9 TDI Lateral E' P. V9.65cm/sMedial E' P. V6.37cm/s E/Lateral E'11.4E/Medial E'17.3 Tricuspid Valve TR P. Sdrjubdy651co/sRAP [id number] TR Peak Gr.35vaKlRIAW76gjDi Pulmonary Vein S1 Wiojlaea64.8cm/sS2 Neoxavmw57.95cm/s D2 Dznysfwq73.9cm/sPVa [id number] LEFT VENTRICLE The Left Ventricle is borderline dilated. There is mild concentric left ventricular hypertrophy. The left ventricular systolic function is normal. Ejection fraction is 50 to 55%. There is normal LV segm ental wall motion. Tissue Doppler imaging reveals moderate left ventricular diastolic dysfunction. RIGHT VENTRICLE The right ventricle is mildly dilated. There is normal right ventricular wall thickness. Systolic fun ction is mildly reduced. ATRIA The left atrium is mildly dilated. The right atrium is mildly dilated. The interatrial septum is inta ct with no evidence for an atrial septal defect or patent foramen ovale as noted on 2-D or Doppler im aging. AORTIC VALVE The aortic valve is not well visualized. Doppler and Color Flow revealed trace aortic regurgitation. There is no significant aortic valvular stenosis. Calculated aortic valve area is 2.23 cm2 with maxim um pressure gradient of 7 mmHg and mean pressure gradient of 4 mmHg. MITRAL VALVE The mitral valve is normal in structure and function. There is no evidence of mitral valve prolapse. There is no mitral valve stenosis. Doppler and Color-flow revealed trace to mild mitral regurgitation . TRICUSPID VALVE The tricuspid valve is normal in structure and function. Doppler and Color Flow revealed trace to mil d tricuspid regurgitation with an estimated PAP of 60 mmHg. There is no tricuspid valve stenosis. PULMONIC VALVE The pulmonic valve is not well visualized. Doppler and Color Flow revealed no pulmonic valvular regur gitation. GREAT VESSELS The aortic root is normal in size. The IVC is dilated. PERICARDIAL EFFUSION There is no evidence of significant pericardial effusion. Critical Notification Critical Value: No <Conclusion> The Left Ventricle is borderline dilated. The left ventricular systolic function is normal. Ejection fraction is 50 to 55%. There is mild concentric left ventricular hypertrophy. Doppler and Color Flow revealed trace aortic regurgitation. There is no significant aortic valvular stenosis. Doppler and Color-flow revealed trace to mild mitral regurgitation. Doppler and Color Flow revealed trace to mild tricuspid regurgitation with an estimated PAP of 60 mmH g. Signed by : Ghulam Hebert MD Electronically Approved : 06/11/2021 12:13:57
[2021-06-11] MEDS ORDERED: VASOPRESSIN - VASOSTRICT 20 UNIT in IV DEXTROSE 5% 100ML 100 ML IV PRN ×2 (12:15→15:15)
[2021-06-11] MEDS ORDERED: HEPARIN for IV BOLUS 10,000 UNIT/10 ML VIAL. ONE (12:25)
[2021-06-11] MEDS ORDERED: CONTRAST GIVEN. MC PRN (13:00)
[2021-06-11] MEDS ORDERED: NITROGLYCERIN 200 MCG/2 ML SYRINGE FOR CATH/VASC LAB. ONE (13:01)
[2021-06-11] MEDS ORDERED: NOREPINEPHRINE VIAL 32 MG in IV DEXTROSE 5% 250 ML IV PRN (13:15)
[2021-06-11] MEDS ORDERED: NITROGLYCERIN 200 MCG/2 ML SYRINGE FOR CATH/VASC LAB. IART ONE (13:15)
[2021-06-11] MEDS ORDERED: MIDAZOLAM HCL/PF 5 MG/5 ML VIAL. ONE (13:44)
--- NOTE | 2021-06-11 13:53 | NUR ---
MYRA WHEATLEY called in Truck Body Builder at approx 1215. Chest compressions initiated, ACLS protocol followed, see Code Blue sheet. Patient intubated in process. IABP placed. Family notified by SWITCHBOARD WIRE WORKER HELPER and Dr. Davis via phone. Dopamine, Levophed, Heparin gtt's continuing to run when patient returned to ICU. See spreadsheet.
[2021-06-11] MEDS ORDERED: ASPIRIN 325 MG TABLET PO ONE (14:00)
[2021-06-11] MEDS ORDERED: CLOPIDOGREL BISULFATE 75 MG TABLET PO ONE (14:00)
[2021-06-11 14:08] LABS: BASE EXCESS ABG -16 mmol/L (-3-3); HCO3 ABG 16 mmol/L (21-28); PO2 ABG 100 mmHg (65-108); SAT O2 ABG 94 % (92-99)
[2021-06-11] MEDS ORDERED: SODIUM BICARB ADULT 8.4% 50 MEQ/50 ML DISP.SYRIN. ONE (14:15)
[2021-06-11 14:23] LABS: PCO2 ABG 62 mmHg (35-46)
[2021-06-11 14:24] LABS: FIO2 ABG 100% AC 20/550/5
[2021-06-11] MEDS ORDERED: LIDOCAINE WITH 8.4% SOD BICARB 3 ML DISP.SYRIN. ONE ×2 (14:30→16:31)
--- NOTE | 2021-06-11 14:32 | NUR ---
Patient is now on balloon pump post cardiac catheterization. Gave report to Gary RAMSEY to assume patient care due to his current status.
[2021-06-11] MEDS ORDERED: MIDAZOLAM HCL/PF 5 MG/5 ML VIAL. IVP ONE (14:45)
[2021-06-11] MEDS ORDERED: MIDAZOLAM 100mg/100ml NS BAG 100 ML IV PRN (14:45)
[2021-06-11] MEDS ORDERED: PHENYLEPHRINE INJ 50 MG in IV NORMAL SALINE 250ML 250 ML IV PRN (15:15)
--- NOTE | 2021-06-11 15:42 | CARD ---
MR#: [id number] Date of Study: 06/11/2021 Ordering Physician: STEPHANIE BANKS, Referring Physician: STEPHANIE BANKS, Tech: RT Yessenia(R) APPROVED REPORT Technologist: RT Yessenia(R) Nurse: Esperanza Roca RN Procedure(s) performed: 1. Left heart catheterization, selective coronary angiography 2. Successful PCI/drug-eluting stent placement to right coronary artery 3. Successful PCI/drug-eluting stent placement to the posterolateral branch 4. Intra-aortic balloon pump placement 5. Cardiopulmonary resuscitation FLUORO TIME:43.7 MIN DOSE:358 Gycm2 Contrast: 367 Visi Mod Sedation: 116 min Class IV Heart Failure INDICATION The indication(s) include : 81-year-old male presented with chest pain and shortness of breath and wa s found to have acute respiratory failure most probably secondary to acute diastolic heart failure an d elevated troponin level consistent with non-STEMI. He also had hypotension needing pressor support consistent with cardiogenic shock. He presented for high risk cardiac catheterization possible PCI/st ent placement.. [facility] Clinical Frailty Scale [facility] Clinical Frailty Scale: Moderately Frail Heart Failure Heart Failure: Yes If Yes, Newly Diagnosed: Yes If Yes, HF Type: Systolic CASE TECHNIQUE IV conscious sedation was used throughout procedure with appropriate monitoring and was performed in the presence of a registered nurse who was an independent trained observer other than the physician p erforming the procedure. During this case, Fluoroscopy and low osmolar contrast were used for imaging . Specimen(s) Removed: No Estimated Blood loss: 20 cc's. PROCEDURE NARRATIVE After explaining the risk, benefits and alternative options, informed consent was obtained from patie nt. Patient was brought to the cardiac Hide And Skin Processing Worker and his right groin was prepped and draped in the us ual fashion. 20 cc of 2% lidocaine was infiltrated in the skin and subcutaneous tissues for local an esthesia. Arterial access was obtained in the right common femoral artery and 6 Chadian sheath was in serted. 6 Chadian JL4 catheter was used to perform selective angiography of the left coronary artery. After initial unsuccessful attempts at engaging the right coronary artery a 6 Chadian JR4 followed b y 6 Chadian AR-1 catheter, this was engaged with 6 Chadian AL-1 catheter and selective angiography was performed. LVEDP and transaortic gradients were measured. The following findings were noted: FINDINGS 1. Hemodynamics: Elevated left ventricular end-diastolic pressure of 32 mmHg consistent with acute d iastolic heart failure. No pullback gradient across the aortic valve 2. Coronary angiography: a. The left main coronary artery arose from the left sinus of Valsalva, gave rise to the left anteri or descending and left circumflex arteries and did not show any significant stenosis. b. The left anterior descending artery did not show any significant stenosis. c. The left circumflex artery showed 60 to 70% stenosis involving the ostial segment. d. The right coronary artery arose from the right sinus of Valsalva and showed aneurysmal dilatation in the mid segment and 100% occlusion in the distal segment. INTERVENTION Several initial attempts to engage and obtain good guide support using 6 Chadian AL-1, AL 0.75 and mul tipurpose catheters were unsuccessful despite trying to use guide liner inner catheter for better sup port. While trying to engage the right coronary artery, patient decompensated, had pulseless electri beny activity followed by asystole and underwent cardiopulmonary resuscitation. He was given 3 doses of epinephrine, 1 dose of atropine and 1 dose of bicarbonate in addition to being placed on Levophed and dopamine drips. He was intubated emergently for acute respiratory failure. After his blood pres sure improved, we decided to proceed with intra-aortic balloon pump for hemodynamic support secondary to cardiogenic shock. The sheath in the right groin was exchanged to the 8 Chadian IABP sheath. 50 cc Sensation plus IABP catheter was advanced under fluoroscopic guidance and positioned optimally, an d turned on at 1:1. A 6 Chadian 3 DRC guide catheter was then used to engage the right coronary artery. The stenosis in t he distal segment was crossed with a 0.014 inch Macrotek guidewire. A guide liner inner cathet er was then advanced and the tip was positioned in the mid to distal segment for better support. The lesion in the distal segment was then dilated with a 2.5 x 12 mm [employer] Emerge balloon fo llowing which this was treated with a 2.5 x 18 mm resolute Ab drug-eluting stent. Follow-up angiog rosa revealed 90% stenosis involving the proximal segment of a large posterolateral branch. This wa s then crossed with the same guidewire, dilated with a 2.5 balloon following which this was successfu lly treated with a 2.5 x 15 mm resolute Ab stent. Final angiography showed resolution of both the lesions with ANTONIO-3 distal flow. Patient will be monitored closely in the intensive care unit while titrating the pressors off. We will remove the intra-aortic balloon pump if he remains hemodynamical ly stable in 24 to 48 hours. ANTONIO Flow ANTONIO Flow (Pre-Intervention): ANTONIO-0 ANTONIO Flow (Post-Intervention): ANTONIO-3 ANTONIO Flow ANTONIO Flow (Pre-Intervention): ANTONIO-0 ANTONIO Flow (Post-Intervention): ANTONIO-3 Conclusion 1. Two-vessel coronary artery disease with the culprit vessel for patient's acute myocardial infarct ion being 100% occluded RCA. 2. Successful PCI/drug-eluting stents placement to the right coronary artery and also the right post erolateral branch. 3. Intra-aortic balloon pump placement for hemodynamic support secondary to cardiogenic shock Recommendations 1. Aspirin 325 mg daily for 1 month followed by 81 mg daily 2. Plavix 75 mg daily 3. Wean pressors and IABP off as tolerated in ICU 4. Check 2D echo to assess LV systolic function 5. Cardiovascular is factor modification and cardiac rehabilitation referral 6. We will consider IFR to LCx to determine the physiologic significance of the stenosis at a later date Signed by : Jamie Davis, Electronically Approved : 06/11/2021 15:41:59
--- NOTE | 2021-06-11 15:53 | RAD ---
XR CHEST 1V CLINICAL INDICATIONS: Reason: ET tube /balloon pump placement / Spl. Instructions: / History: Comparison: June 10, 2021. Findings: ET tube tip is located 5 cm above the level of the karen. NG tube is in place and the tip cannot be seen in this study but the tube extends down to at least the GE junction at the level of th e hemidiaphragm. Aortic balloon pump is located in the region of the aortic arch. No pneumothorax is seen. Worsening bilateral lower lung zone and right midlung zone lung infiltrates are seen. The heart size and mediastinum are stable. IMPRESSION: Worsening bilateral lung infiltrates or pulmonary edema. Electronically signed by: Husam Benitez MD (06/11/2021 3:51 PM) [id number]
[2021-06-11 16:06] LABS: BASE EXCESS ABG -9 mmol/L (-3-3); HCO3 ABG 18 mmol/L (21-28); PCO2 ABG 47 mmHg (35-46); PO2 ABG 103 mmHg (65-108); SAT O2 ABG 97 % (92-99)
[2021-06-11 16:10] LABS: FIO2 ABG 100% AC 26/550/7
--- NOTE | 2021-06-11 16:28 | EKG ---
[facility] [address] [place] [address] Test Date: 2021-06-10 Test Time: 22:38:01 Pat Name: CHRISSIE PAREDES Department: Room: 111 1 Gender: M Development Editor: : 1940 Requested By: STEPHANIE BANKS Order Number: [id number] Reading MD: Wayne Carrion MD Measurements Intervals [place] Rate: 87 P: 90 IA: 266 QRS: 65 QRSD: 122 T: 13 QT: 390 QTc: 470 Interpretive Statements ATRIAL FIBRILLATION INFERIOR ISCHEMIA/INJURY Electronically Signed On 06-15-2021 14:08:36 REFUSE AND RECYCLING WORKER by Wayne Carrion MD
[2021-06-11] MEDS ORDERED: LIDOCAINE WITH 8.4% SOD BICARB 3 ML DISP.SYRIN. INJ ONE (17:00)
[2021-06-11] MEDS ORDERED: AMIODARONE 450 MG in IV DEXTROSE 5% 250 ML IV PRN (17:15)
[2021-06-11] MEDS ORDERED: AMIODARONE 150 MG in IV DEXTROSE 5% 100ML 100 ML IV ONE (17:15)
--- NOTE | 2021-06-11 18:00 | RAD ---
Exam: Chest one view INDICATION: Central line TECHNIQUE: Frontal view of the chest Comparisons: 06/11/2021 FINDINGS: Endotracheal tube with tip approximately 3 7 m above the karen. Enteric tube traverses below the berta phragm distal extent not visualized. There is a double-lumen catheter with tip in the SVC. Right IJ c atheter is also seen with tip in the SVC. Heart is mildly enlarged. Pulmonary vessels are within normal limits. Hazy opacity at the lungs bilaterally greater at the right middle lobe similar prior exam. No pleural effusion. IMPRESSION: Lines and tubes described above. Electronically signed by: Jam Benson MD (06/11/2021 5:58 PM) ERIS
[2021-06-11 18:06] LABS: ALBUMIN 2.5 g/dL (3.4-5.0); ALBUMIN/GLOBULIN RATIO 0.7 (1.0-1.7); CALCIUM 7.4 mg/dL (8.5-10.1); CREATININE 3.4 mg/dL (0.7-1.3); GFR 17.4; TOTAL BILIRUBIN 1.2 mg/dL (0.2-1.0); TOTAL PROTEIN 6.3 g/dL (6.4-8.2)
[2021-06-11 18:09] LABS: POTASSIUM 6.8 mmol/L (3.5-5.1)
--- NOTE | 2021-06-11 18:19 | HP ---
DATE OF SERVICE: 06/11/2021 ADMIT DATE: 06/10/2021 CHIEF COMPLAINT AND HISTORY OF PRESENT ILLNESS: This 81-year-old white male well known to me from followup in the office for many years. I spoke with the patient on the evening of admission. He has been having what he described as reflux for about a week or so. He became short of breath on the day of admission and had some difficulties lying down, particularly breathing. I told him I thought this was likely cardiac in nature with the development of some heart failure and that he should go to the emergency room. He wanted to try an inhaler first, which he did, which was unsuccessful in helping and he then went to the emergency room where he was found to have a non-ST elevated myocardial infarction and congestive heart failure. He had a rapid COVID test done that was negative. PAST MEDICAL HISTORY: Remarkable for diabetes, hypertension, hyperlipidemia, gout. MEDICATIONS: Brought with the patient, listed on the computer have been addressed. ALLERGIES: He has no known drug allergies. FAMILY HISTORY: Noncontributory. REVIEW OF SYSTEMS: As mentioned above. PHYSICAL EXAMINATION: GENERAL: He is a well-developed, well-nourished white male who appears ill. He is on a BiPAP and his extremities are cool. HEAD, EYES, EARS, NOSE AND THROAT: Remarkable for the BiPAP. NECK: Supple, without any thyromegaly. CHEST: Decreased breath sounds bilaterally. HEART: Regular rate and rhythm without S3, S4 or murmur. ABDOMEN: Soft, nontender, without hepatosplenomegaly or masses. EXTREMITIES: With 1+ edema. NEUROLOGIC: He is intact. LABORATORY DATA: Initial labs show a BUN of 19, creatinine 1.8. Troponin 4851. White count 12,300, rest of the CBC essentially unremarkable. ASSESSMENT: 1. Non-ST elevated myocardial infarction with congestive heart failure, likely diastolic with a normal echocardiogram in the past. 2. Hypotension, likely related to cardiogenic shock. He has received Lasix for the congestive heart failure. 3. Acute kidney injury with creatinine up to 1.8. PLAN: Pulmonary and cardiac consultation. The patient is going to need heart catheterization to further elucidate this. We will trend laboratory including his white count and creatinine. IGNACIO/NATHAN/GAL DR: IGNACIO/kera TID: [id number]
[2021-06-11] MEDS: HEPARIN 25,000UTS/250ML PREMIX 250 ML IV PRN (19:13)
--- NOTE | 2021-06-11 20:00 | NUR ---
Multiple family members in and out to say their goodbyes. At 1939 son, Vipul, requested we shut off all the drips and at 1944 the vent and balloon pump. Patient at 1950 with family in the room. All belongings, including [facility], went with Vipul Bhatia. Patient is to be sent to [facility] and [place] per family. All family members very tearful but glad he is "now with his ".
[2021-06-12] MEDS ORDERED: CLOPIDOGREL BISULFATE 75 MG TABLET PO SCH (08:00)
--- NOTE | 2021-06-12 13:32 | RAD ---
Procedure: 1. Ultrasound-guided placement of a right internal jugular temporary hemodialysis catheter 2. Ultrasound-guided placement of a right internal jugular triple-lumen central venous catheter Sterility: All elements of maximal sterile barrier technique including the use of a cap, mask, steril e gown, sterile gloves, large sterile sheet, appropriate hand hygiene, and 2% chlorhexidine for cutan eous antisepsis (or acceptable alternative antiseptic per current guidelines) were followed for this procedure. Consent: The procedure was explained in its entirety to the patient or the patients designated repres entative by a member of the treatment team, including a discussion of the risks, benefits and commonl y accepted alternatives to the procedure, as well as the expected consequences of no therapy whatsoev er. Discussion of the risks included, but was not limited to, those that are most frequent and thos e that are rare but possibly severe or life-threatening, as well as the possibility of unforeseen com plications. Technique and Findings: Following informed consent, the patient was prepped and draped in the usual s terile fashion. Ultrasound interrogation of the right neck revealed patency and compressibility of t he right internal jugular vein. A 21-gauge micropuncture was then used to gain access to this vein u nder ultrasound guidance. A hard copy ultrasound image was recorded. A guidewire was advanced centra lly over which, following dilatation, a temporary dialysis catheter was placed. The new catheter wa s found to flush and aspirate normally. The catheter was secured in place. This procedure was perform ed in essentially identical fashion with the exception then settled temporary dialysis catheter, a tr iple-lumen central venous catheter was placed. The catheter was placed slightly more cephalad in the right internal jugular vein. Sterile dressings were applied. No immediate complications were identified. IMPRESSION: 1. Ultrasound-guided placement of right internal jugular temporary hemodialysis catheter 2. Ultrasound-guided placement of right internal jugular triple-lumen central venous catheter Electronically signed by: Luciano Pulido MD (06/12/2021 1:30 PM) [id number]
== END 2021-06-11 23:29 | DRG 270 ==
LOC: ER 21:15 → 1 WEST ICU 22:39
PROVIDERS: ADMIT Family Medicine; ATTEND Family Medicine
PROC: 5A1935Z Respiratory Ventilation, Less than 24 Consecutive Hours (ICD-10-PCS; 2021-06-10)
PROC: 0BH17EZ Insertion of Endotracheal Airway into Trachea, Via Natural or Artificial Opening (ICD-10-PCS; 2021-06-10)
PROC: 5A09357 Assistance with Respiratory Ventilation, Less than 24 Consecutive Hours, Continuous Positive Airway Pressure (ICD-10-PCS; 2021-06-10)
PROC: 5A02210 Assistance with Cardiac Output using Balloon Pump, Continuous (ICD-10-PCS; principal; 2021-06-11)
PROC: 027135Z Dilation of Coronary Artery, Two Arteries with Two Drug-eluting Intraluminal Devices, Percutaneous Approach (ICD-10-PCS; 2021-06-11)
PROC: 4A023N7 Measurement of Cardiac Sampling and Pressure, Left Heart, Percutaneous Approach (ICD-10-PCS; 2021-06-11)
PROC: B211YZZ Fluoroscopy of Multiple Coronary Arteries using Other Contrast (ICD-10-PCS; 2021-06-11)
PROC: 5A12012 Performance of Cardiac Output, Single, Manual (ICD-10-PCS; 2021-06-11)
PROC: 02HV33Z Insertion of Infusion Device into Superior Vena Cava, Percutaneous Approach (ICD-10-PCS; 2021-06-11)
PROC: B548ZZA Ultrasonography of Superior Vena Cava, Guidance (ICD-10-PCS; 2021-06-11)
PROC: 02HV33Z Insertion of Infusion Device into Superior Vena Cava, Percutaneous Approach (ICD-10-PCS; 2021-06-11)
PROC: B548ZZA Ultrasonography of Superior Vena Cava, Guidance (ICD-10-PCS; 2021-06-11)
DX: I21.4 Non-ST elevation (NSTEMI) myocardial infarction (principal); I50.33 Acute on chronic diastolic (congestive) heart failure; J96.00 Acute respiratory failure, unspecified whether with hypoxia or hypercapnia; N17.0 Acute kidney failure with tubular necrosis; R07.89 Other chest pain; I20.0 Unstable angina; D72.829 Elevated white blood cell count, unspecified; E11.9 Type 2 diabetes mellitus without complications; E66.9 Obesity, unspecified; E78.5 Hyperlipidemia, unspecified; F17.210 Nicotine dependence, cigarettes, uncomplicated; I11.0 Hypertensive heart disease with heart failure; I48.91 Unspecified atrial fibrillation; I25.2 Old myocardial infarction; R57.0 Cardiogenic shock; Z20.822 Contact with and (suspected) exposure to COVID-19; Z68.29 Body mass index [BMI] 29.0-29.9, adult; M10.9 Gout, unspecified; M19.90 Unspecified osteoarthritis, unspecified site
CPT/HCPCS: 33967; 36415; 36556; 36600; 71045; 76937; 80048; 80053; 80061; 80076; 82550; 82805; 82962; 83880; 84484; 85025; 85027; 85379; 85520; 85610; 85730; 87426; 92928; 92929; 93005; 93306; 93458; 94002; 94660; 96374; 96375; 99152; 99153; 99406; C1874; C1892; C1894; J0282; J0583; J1265; J1644; J1940; J2250; J3010; J3490; J7030; J7060; Q9967; U0003; U0005; 99291-25; C1725; G0378